=== PATIENT | male | born 1975 | race Caucasian/White ===

== ENCOUNTER → 2016-08-12 | Outpatient (CLI) | payer BC ==
[2016-08-12 12:31] LABS: Basophils % (A) 1 %; CHCM 34.9; Eosinophils # (A) 0.2 k/uL (0-0.7); Eosinophils % (A) 3 %; HCT 52.4 % (39.0-53.0); HDW 2.81; HGB 17.9 gm/dL (13.0-17.5); Luc # (Auto) 0.17; Luc % (Auto) 2; Lymphocytes % (A) 27 %; MCH 29.5 pg (25.0-35.0); MCHC 34.2 g/dL (31.0-37.0); MCV 86.4 fL (80.0-100.0); Monocytes # (A) 0.4 k/uL (0-1.0); Monocytes % (A) 6 %; Neutrophils # (A) 4.8 k/uL (1.3-7.7); Neutrophils % (A) 63 %; RBC 6.06 m/uL (4.30-5.90); RDW 13.5 % (11.5-15.5); WBC 7.7 k/uL (3.8-10.6); WBC (Perox) 7.68
[2016-08-12 12:32] LABS: ALT 34 U/L (21-72); AST 21 U/L (17-59); Alkaline Phosphatase 67 U/L (38-126); Anion Gap 11 mmol/L; Blood Urea Nitrogen 12 mg/dL (9-20); Calcium 9.7 mg/dL (8.4-10.2); Carbon Dioxide 32 mmol/L (22-30); Chloride 99 mmol/L (98-107); Cholesterol 261 mg/dL (<200); Glucose 108 mg/dL (74-99); HDL Cholesterol 68 mg/dL (40-60); Non-African American GFR(MDRD) >60 (>60 ml/min/1.73 sqM); Potassium 4.9 mmol/L (3.5-5.1); Sodium 142 mmol/L (137-145); Total Bilirubin 1.3 mg/dL (0.2-1.3); Total Protein 7.2 g/dL (6.3-8.2); Triglycerides 282 mg/dL (<150)
[2016-08-12 16:22] LABS: Hemoglobin A1C 6.6 % (4.2-6.1)
== END | disposition home or self-care (01) ==
LOC: LABWHC1 12:03
PROVIDERS: ATTEND Family Medicine
DX: E11.65 Type 2 diabetes mellitus with hyperglycemia (principal)
CPT/HCPCS: 36415; 80053; 80061; 82043; 83036; 84443; 85025

== ENCOUNTER → 2018-03-31 | Outpatient (CLI) | payer BC ==
[2018-03-31 14:14] VITALS: BP 118/71; PULSE 51; TEMP 98.4; BMI 48.9
--- NOTE | 2018-03-31 15:39 | P.HPBAR ---
Bariatric H&P - History & Physicial H&P Date: 03/31/18 History & Physicial: Visit/CC: initial consultation Patient initial contact: Initial weight: 157.034 kg Initial weight in pounds: 346.20 Height: 5 ft 10.5 in Initial BMI: 48.9 Last weight: Current weight: 157.034 kg Current weight in pounds: 346.20 Current BMI: 48.9 [place] body weight (based on NIH guidelines): 76.657 kg Excess body weight loss: 0.0% The patient is a 42 year-old M who presents for Bariatric Assessment. Patient here today for evaluation of bariatric surgery. Patient suffered with his weight for the majority of his life. He went to a seminar in February. He is interested in sleeve gastrectomy. Patient's highest weight is around 350 which is where he is now. He did have some success with dieting several years ago and was down into the to 40 range. Patient suffers from hypertension, type 2 diabetes, hypercholesterolemia, minimal reflux disease, suspected arthritis in his knees and ankles. Denies any history of DVT or dysphagia in the past. No previous abdominal surgeries. Denies tobacco or alcohol use. 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) History of Any Multi-Drug Resistant Organisms: None Reported Past Surgical History: Orthopedic Surgery, Tonsillectomy Additional Past Surgical History / Comment(s): left ankle bone spurs removed Past Anesthesia/Blood Transfusion Reactions: No Reported Reaction Past Psychological History: No Psychological Hx Reported Smoking Status: Never smoker Past Alcohol Use History: Occasional Past Drug Use History: None Reported - Past Family History Mother History Unknown: Yes Family Medical History: Diabetes Mellitus, Myocardial Infarction ([place]) Additional Family Medical History / Comment(s): Biological mother at age 67. Bilogical maternal grandfather from a heart attack and also had DM Father Family Medical History: No Reported History Surgical - Exam Vital Signs Temp Pulse BP 98.4 F 51 L 118/71 03/31/18 13:53 03/31/18 13:53 03/31/18 13:53 Physical exam: General: Well-developed, well-nourished HEENT: Normocephalic, sclerae nonicteric Abdomen: Nontender, nondistended Extremities: No edema Neuro: Alert and oriented Bariatric Assessment & Plan (1) Morbid obesity with BMI of 45.0-49.9, adult Narrative/Plan: Patient with morbid obesity. Interested in sleeve gastrectomy. Patient went to a recent bariatric seminar. He and I reviewed what he learned at the recent seminar. We discussed the options of sleeve gastrectomy and gastric bypass in detail. The risks and benefits of both procedures were reviewed. Patient remained interested in sleeve gastrectomy. We'll move forward with preoperative evaluation and preparation for sleeve gastrectomy. Patient will follow up with me for upper endoscopy as we approach his surgical date. Patient is complaining of some chronic fatigue and snoring at times. We'll order sleep study at this time. Status: Acute Bariatric Checklist Checklist: Plan: Checklist: EGD: 1. Hiatal hernia: 2. H. Pylori: HgbA1c: Vitamin D: Smoking: Never smoker Primary care physician referral: malinda leigh Psychiatry clearance: Cardiology clearance: Sleep study: Diet journal: VTE risk score: VTE risk level: Rehab needs at discharge:
== END | disposition home or self-care (01) ==
LOC: BARWHC3 13:44
PROVIDERS: ATTEND Surgery
DX: E66.01 Morbid (severe) obesity due to excess calories (principal); Z68.42 Body mass index [BMI] 45.0-49.9, adult; Z90.49 Acquired absence of other specified parts of digestive tract; Z98.890 Other specified postprocedural states
CPT/HCPCS: 99211

== ENCOUNTER → 2018-04-01 | Outpatient (CLI) | payer BC ==
[2018-04-01 09:09] LABS: HCT 47.7 % (39.0-53.0); HGB 16.1 gm/dL (13.0-17.5); MCH 28.7 pg (25.0-35.0); MCHC 33.8 g/dL (31.0-37.0); Mean Platelet Volume 6.4; Platelet Count 319 k/uL (150-450); RBC 5.62 m/uL (4.30-5.90); RDW 13.4 % (11.5-15.5)
[2018-04-01 14:21] LABS: Eosinophils # (M) 0.07 k/uL (0-0.7); Lymphocytes # (M) 2.31 k/uL (1.0-4.8); Monocytes # (M) 0.49 k/uL (0-1.0); Neutrophils # (M) 4.13 k/uL (1.3-7.7); Neutrophils % (M) 59 %; Nucleated Red Blood Cells 0 /100 WBC (0-0); Total Cells Counted 100
[2018-04-01 17:31] LABS: Vitamin D 25 Hydroxy 13.4 ng/mL (30.0-100.0)
[2018-04-01 19:37] LABS: Albumin 4.3 g/dL (3.80-4.90); Albumin/Globulin Ratio 2.69 (1.20-2.10); Anion Gap 9.9 mmol/L (4.00-12.00); Calcium 8.9 mg/dL (8.7-10.3); Carbon Dioxide 29.1 mmol/L (21.6-31.8); Globulin 1.6 g/dL (1.6-3.3); Potassium 4.4 mmol/L (3.5-5.5); Total Bilirubin 0.6 mg/dL (0.3-1.2); Total Protein 5.9 g/dL (6.2-8.2)
[2018-04-01 21:02] LABS: Hemoglobin A1C 9.8 % (4.0-6.0)
[2018-04-01 21:43] LABS: LDL Cholesterol,Calculated 99.4 mg/dL (0.0-131.0); VLDL Calculation 43.6 mg/dL (5.00-40.00)
== END | disposition home or self-care (01) ==
LOC: LABWHC1 08:09
PROVIDERS: ATTEND Surgery
DX: E66.01 Morbid (severe) obesity due to excess calories (principal); D50.8 Other iron deficiency anemias; E55.9 Vitamin D deficiency, unspecified; E11.65 Type 2 diabetes mellitus with hyperglycemia; Z68.42 Body mass index [BMI] 45.0-49.9, adult
CPT/HCPCS: 36415; 80053; 80061; 82306; 82607; 83036; 83540; 84443; 85027; 93005

== ENCOUNTER → 2018-05-05 | Outpatient (CLI) | payer BC ==
[2018-05-05 13:11] LABS: Basophils % (A) 0 %; Eosinophils # (A) 0.1 k/uL (0-0.7); Eosinophils % (A) 2 %; HCT 45.6 % (39.0-53.0); HGB 16.2 gm/dL (13.0-17.5); Lymphocytes % (A) 25 %; MCH 30.1 pg (25.0-35.0); MCHC 35.4 g/dL (31.0-37.0); Mean Platelet Volume 6.3; Monocytes # (A) 0.4 k/uL (0-1.0); Monocytes % (A) 6 %; Neutrophils # (A) 5.2 k/uL (1.3-7.7); Neutrophils % (A) 66 %; Platelet Count 271 k/uL (150-450); RBC 5.37 m/uL (4.30-5.90); RDW 13.5 % (11.5-15.5); WBC 7.9 k/uL (3.8-10.6)
[2018-05-05 18:43] LABS: Albumin 4.5 g/dL (3.80-4.90); Albumin/Globulin Ratio 2.5 (1.60-3.17); Anion Gap 8.6 mmol/L (4.00-12.00); Calcium 9.5 mg/dL (8.7-10.3); Carbon Dioxide 30.4 mmol/L (21.6-31.8); Globulin 1.8 g/dL (1.6-3.3); LDL Cholesterol,Calculated 67.4 mg/dL (0.0-131.0); Potassium 4.1 mmol/L (3.5-5.5); Total Bilirubin 1.2 mg/dL (0.3-1.2); Total Protein 6.3 g/dL (6.2-8.2); VLDL Calculation 31.6 mg/dL (5.00-40.00)
[2018-05-05 22:15] LABS: Hemoglobin A1C 8.8 % (4.0-6.0)
== END ==
LOC: LABWHC1 11:59
PROVIDERS: ATTEND Family Medicine
DX: E11.65 Type 2 diabetes mellitus with hyperglycemia (principal)
CPT/HCPCS: 36415; 80053; 80061; 82043; 82570; 83036; 84443; 85025

== ENCOUNTER → 2018-11-30 | Outpatient (CLI) | payer BC ==
[2018-11-30 10:27] VITALS: BMI 48.0
== END | disposition home or self-care (01) ==
LOC: BARWHC3 08:51
PROVIDERS: ATTEND Surgery
DX: E66.01 Morbid (severe) obesity due to excess calories (principal); Z68.42 Body mass index [BMI] 45.0-49.9, adult
CPT/HCPCS: 97804

== ENCOUNTER 2018-12-11 06:52 | Day surgery (SDC) | payer BC ==
[2018-12-09 16:10] VITALS: BMI 48.0
[~2018-12-11 06:52] MED LIST: LACTATED RINGERS 1,000 ML IV SCH; LIDOCAINE 1% 20 ML VIAL (10MG/ML) FOR IV START INTRADERMA PRN
[2018-12-11] MEDS ORDERED: LACTATED RINGERS 1,000 ML IV ONE (07:04)
[2018-12-11 07:14] VITALS: TEMP 98.6
[2018-12-11 07:30] LABS: Glucose,Whole Blood 182 mg/dL (75-99)
[2018-12-11] MEDS ORDERED: GLYCOPYRROLATE 0.2 MG/ML 2 ML VIAL ONE (07:38)
[2018-12-11] MEDS ORDERED: MIDAZOLAM 2 MG/2 ML VIAL ONE (07:38)
[2018-12-11] MEDS ORDERED: LIDOCAINE 1% INJ 10MG/ML (20 ML MDV) ONE (07:38)
[2018-12-11] MEDS ORDERED: KETAMINE 10 MG/ML 20 ML VIAL ONE (07:38)
[2018-12-11] MEDS ORDERED: PROPOFOL 10 MG/ML 20 ML VIAL IV ONE (07:38)
--- NOTE | 2018-12-11 08:05 | P.GSHP ---
History of Present Illness H&P Date: 12/11/18 Chief Complaint: GERD Patient here today for upper endoscopy. He is being worked up for sleeve gastrectomy in the bariatric clinic. Complains of mild reflux. No dysphagia. Past Medical History Past Medical History: Asthma, Diabetes Mellitus, Hypertension Additional Past Medical History / Comment(s): mild asthma History of Any Multi-Drug Resistant Organisms: None Reported Past Surgical History: Orthopedic Surgery, Tonsillectomy Additional Past Surgical History / Comment(s): left ankle bone spurs removed , Past Anesthesia/Blood Transfusion Reactions: No Reported Reaction Smoking Status: Never smoker - Past Family History Mother History Unknown: Yes Family Medical History: Diabetes Mellitus, Myocardial Infarction ([place]) Additional Family Medical History / Comment(s): Biological mother at age 67. Bilogical maternal grandfather from a heart attack and also had DM Father Family Medical History: No Reported History Medications and Allergies Home Medications Medication Instructions Recorded Confirmed Type Albuterol Inhaler [Ventolin Hfa 2 puff INHALATION Q4H PRN #1 11/14/14 12/11/18 Rx Inhaler] inhaler metFORMIN HCL [Glucophage Xr] 750 mg PO BID 03/31/18 12/11/18 History Simvastatin [Zocor] 10 mg PO HS 11/30/18 12/11/18 History Lisinopril [Zestril] 10 mg PO DAILY 12/09/18 12/11/18 History Allergies Allergy/AdvReac Type Severity Reaction Status Date / Time No Known Allergies Allergy Verified 12/11/18 07:15 Surgical - Exam Vital Signs Temp Pulse Resp BP Pulse Ox 98.6 F 83 14 129/77 96 12/11/18 07:13 12/11/18 07:13 12/11/18 07:13 12/11/18 07:13 12/11/18 07:13 Physical exam: General: Well-developed, well-nourished HEENT: Normocephalic, sclerae nonicteric Abdomen: Nontender, nondistended Extremities: No edema Neuro: Alert and oriented Results - Labs Abnormal Lab Results - Last 24 Hours (Table) 12/11/18 Range/Units 07:25 POC Glucose (mg/dL) 182 H (75-99) mg/dL Assessment and Plan (1) GERD (gastroesophageal reflux disease) Narrative/Plan: Will proceed with upper endoscopy at this time Current Visit: Yes Status: Acute Code(s): K21.9 - GASTRO-ESOPHAGEAL REFLUX DISEASE WITHOUT ESOPHAGITIS SNOMED Code(s): 805449353
--- NOTE | 2018-12-11 08:13 | P.PCN ---
Date of Procedure: 12/11/18 Procedure(s) Performed: Preoperative Dx: GERD, presurgical Postoperative Dx: Duodenitis, gastritis with erosions Procedure: EGD with Bx Anesthesia: Sedation Endoscopist: Dr. Nieves Specimens: Duodenum, antrum Endoscopic Procedure: The patient was on the endoscopy table in the left decubitus position. The Olympus gastroscope was inserted into the oropharynx and passed under direct visualization to the region of the third portion of the duodenum. From that point the scope was slowly withdrawn inspecting all surfaces carefully. There was duodenitis present. This was involving the first and second portion of the duodenum. Biopsies took place. No ulcers were seen. The pylorus was widely patent. The stomach was inspected. There was gastritis present with a few small erosions in the antrum and prepyloric region. Biopsies of the gastritis took place. Retroflexion revealed a normal hiatus. The esophagus was then carefully examined. There were no neoplastic inflammatory or polypoid lesions throughout the visualized esophagus. The patient was then taken to the recovery room in stable condition per anesthesia guidelines. Recommendations: Begin antiacid therapy. Await biopsy results. Continue preoperative workup for sleeve gastrectomy.
[2018-12-11 08:17] VITALS: RESP 16
[2018-12-11 08:43] VITALS: BP 127/84; PULSE 93
== END 2018-12-11 08:55 | disposition home or self-care (01) ==
LOC: ORWHC2ENDO 06:52
PROVIDERS: ATTEND Surgery
DX: K31.9 Disease of stomach and duodenum, unspecified (principal); K29.80 Duodenitis without bleeding; K25.9 Gastric ulcer, unspecified as acute or chronic, without hemorrhage or perforation; K21.9 Gastro-esophageal reflux disease without esophagitis; J45.909 Unspecified asthma, uncomplicated; E11.9 Type 2 diabetes mellitus without complications; I10 Essential (primary) hypertension; E66.01 Morbid (severe) obesity due to excess calories; Z68.42 Body mass index [BMI] 45.0-49.9, adult; Z79.84 Long term (current) use of oral hypoglycemic drugs; Z79.899 Other long term (current) drug therapy; Z90.89 Acquired absence of other organs; Z98.890 Other specified postprocedural states; Z83.3 Family history of diabetes mellitus; Z82.49 Family history of ischemic heart disease and other diseases of the circulatory system
CPT/HCPCS: 88305; 43239; J2250; J2001; J2704

== ENCOUNTER → 2018-12-29 | Outpatient (CLI) | payer BC ==
[2018-12-29 14:30] VITALS: BP 142/79; PULSE 107; RESP 16; TEMP 98.7; BMI 49.5
--- NOTE | 2018-12-29 22:11 | P.BASOAP ---
Subjective Progress Note Date: 12/29/18 Principal diagnosis: Morbid obesity Patient returns for recheck. Underwent recent upper endoscopy. Patient was found to have duodenitis and gastritis with small erosions. Doing well at this time. He remains interested in sleeve gastrectomy. No changes to his history and physical otherwise. Objective - Vital Signs Vital signs: Vital Signs Temp 98.7 F 12/29/18 14:28 Pulse 107 H 12/29/18 14:28 Resp 16 12/29/18 14:28 BP 142/79 12/29/18 14:28 Pulse Ox Intake & Output 12/29/18 12/29/18 12/30/18 06:59 18:59 06:59 Weight 158.757 kg - Exam Abdomen: Soft, nontender, nondistended Assessment/Plan (1) Morbid obesity with BMI of 45.0-49.9, adult Narrative/Plan: Sleeve gastrectomy procedure and the surgical consent form reviewed in detail. Associated risk and benefits discussed. He remains interested. We'll schedule on 01/11. Plan: Date: 12/29/18 Initial Weight: 157.034 kg Initial BMI: 48.9 Current Weight: 158.757 kg Current BMI: 49.5 Type of Surgery: Total Volume in Band: Previous Volume: Volume Removed: Volume Added: Band Size:
== END | disposition home or self-care (01) ==
LOC: BARWHC3 14:17
PROVIDERS: ATTEND Surgery
DX: E66.01 Morbid (severe) obesity due to excess calories (principal); K29.80 Duodenitis without bleeding; K29.70 Gastritis, unspecified, without bleeding; Z68.42 Body mass index [BMI] 45.0-49.9, adult
CPT/HCPCS: 99211

== ENCOUNTER → 2019-01-08 | Outpatient (CLI) | payer BC ==
[2019-01-08 13:54] LABS: Basophils # (A) 0.1 k/uL (0-0.2); Basophils % (A) 1 %; Eosinophils # (A) 0.2 k/uL (0-0.7); Eosinophils % (A) 3 %; HCT 47.6 % (39.0-53.0); HGB 16.4 gm/dL (13.0-17.5); Lymphocytes # (A) 1.8 k/uL (1.0-4.8); Lymphocytes % (A) 28 %; MCH 29.9 pg (25.0-35.0); MCHC 34.4 g/dL (31.0-37.0); MCV 86.8 fL (80.0-100.0); Monocytes # (A) 0.4 k/uL (0-1.0); Monocytes % (A) 6 %; Neutrophils # (A) 3.9 k/uL (1.3-7.7); Neutrophils % (A) 60 %; Platelet Count 256 k/uL (150-450); RBC 5.49 m/uL (4.30-5.90); RDW 13.2 % (11.5-15.5); WBC 6.5 k/uL (3.8-10.6)
[2019-01-08 14:14] LABS: ALT 28 U/L (21-72); AST 27 U/L (17-59); African American GFR (CKD) >90 (>60 ml/min/1.73 sqM); Alkaline Phosphatase 80 U/L (38-126); Anion Gap 10 mmol/L; Blood Urea Nitrogen 16 mg/dL (9-20); Calcium 8.8 mg/dL (8.4-10.2); Carbon Dioxide 29 mmol/L (22-30); Chloride 97 mmol/L (98-107); Glucose 271 mg/dL (74-99); Sodium 136 mmol/L (137-145); Total Bilirubin 0.9 mg/dL (0.2-1.3); Total Protein 6.7 g/dL (6.3-8.2)
== END | disposition home or self-care (01) ==
LOC: LABWHC1 13:09 → LABPAT 13:09
PROVIDERS: ATTEND Surgery
DX: Z01.812 Encounter for preprocedural laboratory examination (principal)
CPT/HCPCS: 80053; 85025

== ENCOUNTER 2019-01-11 11:08 | Inpatient (IN) | payer BC ==
[2019-01-08 13:07] VITALS: BMI 48.8
[~2019-01-11 11:08] MED LIST changes: +ACETAMINOPHEN TAB 500 MG TAB PO ONE; +DEXAMETHASONE SOD PHOSPHATE 10 MG/ML 1 ML VIAL IV ONE; +ENOXAPARIN 40 MG/0.4 ML SYRINGE SQ ONE; -LACTATED RINGERS 1,000 ML IV SCH; +ONDANSETRON 4 MG/2 ML VIAL IVP ONE; +ceFAZolin 3 GM in SODIUM CHLORIDE 0.9% 100 ML IVPB ONE
[2019-01-11] MEDS ORDERED: LACTATED RINGERS 1,000 ML IV ONE ×2 (11:37→14:29)
[2019-01-11 11:49] LABS: Glucose,Whole Blood 173 mg/dL (75-99)
[2019-01-11] MEDS: LACTATED RINGERS 1,000 ML IV SCH ×3 (13:10→19:37)
--- NOTE | 2019-01-11 13:11 | P.GSHP ---
History of Present Illness H&P Date: 01/11/19 Chief Complaint: Morbid obesity 43-year-old male known to our service. Patient here today for elective sleeve gastrectomy. Patient has investigated both sleeve gastrectomy and gastric bypass but remains interested in sleeve gastrectomy. No history of DVT or dysphagia. Recent endoscopy showed duodenitis and gastritis. No history of abdominal surgeries. Patient suffers from hypertension type 2 diabetes hypercholesterolemia mild reflux symptoms and arthritis. 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 Bilogical maternal grandfather from a heart attack and also had DM Father Family Medical History: No Reported History Medications and Allergies Home Medications Medication Instructions Recorded Confirmed Type Albuterol Inhaler [Ventolin Hfa 2 puff INHALATION Q4H PRN #1 11/14/14 01/08/19 Rx Inhaler] inhaler metFORMIN HCL [Glucophage Xr] 750 mg PO BID 03/31/18 01/08/19 History Simvastatin [Zocor] 10 mg PO HS 11/30/18 01/08/19 History Lisinopril [Zestril] 10 mg PO DAILY 12/09/18 01/08/19 History Omeprazole [PriLOSEC] 20 mg PO -BRKFST #90 cap 12/11/18 01/08/19 Rx Allergies Allergy/AdvReac Type Severity Reaction Status Date / Time No Known Allergies Allergy Verified 01/08/19 13:05 Surgical - Exam Vital Signs Temp Pulse Resp BP Pulse Ox 97.8 F 95 18 139/87 97 01/11/19 11:36 01/11/19 11:36 01/11/19 11:36 01/11/19 11:36 01/11/19 11:36 Physical exam: General: Well-developed, well-nourished HEENT: Normocephalic, sclerae nonicteric Abdomen: Nontender, nondistended Extremities: No edema Neuro: Alert and oriented Results - Labs Abnormal Lab Results - Last 24 Hours (Table) 01/11/19 Range/Units 11:47 POC Glucose (mg/dL) 173 H (75-99) mg/dL Assessment and Plan (1) Morbid obesity with BMI of 45.0-49.9, adult Narrative/Plan: Will proceed with sleeve gastrectomy at this time. The risks of bleeding, infection, stenosis, stricture, leak, abscess, fistula formation, peritonitis, poor weight loss, reflux, vomiting, conversion to an open procedure, aborting sleeve gastrectomy, [place], PE, DVT, and were discussed. The patient understands and wishes to proceed. Current Visit: No Status: Acute Code(s): E66.01 - MORBID (SEVERE) OBESITY DUE TO EXCESS CALORIES; Z68.42 - BODY MASS INDEX (BMI) 45.0-49.9, ADULT SNOMED Code(s): 175810606
[2019-01-11] MEDS ORDERED: NEOSTIGMINE 1 MG/ML 10 ML VIAL ONE (13:27)
[2019-01-11] MEDS ORDERED: ALBUTEROL INHALER 60 PUFF/8 GM INHALER INHALATION ONE (13:27)
[2019-01-11] MEDS ORDERED: PHENYLEPHRINE-0.9% NACL SYG 1 MG/10 ML SYRINGE ONE (13:27)
[2019-01-11] MEDS ORDERED: LIDOCAINE 1% INJ 10MG/ML (20 ML MDV) ONE (13:27)
[2019-01-11] MEDS ORDERED: fentaNYL (PF) 50 MCG/ML 2 ML AMP ONE (13:27)
[2019-01-11] MEDS ORDERED: SUCCINYLCHOLINE CHLORIDE VIAL 200 MG/10 ML VIAL IV ONE (13:27)
[2019-01-11] MEDS ORDERED: GLYCOPYRROLATE 0.2 MG/ML 2 ML VIAL ONE (13:27)
[2019-01-11] MEDS ORDERED: PROPOFOL 10 MG/ML 20 ML VIAL IV ONE (13:27)
[2019-01-11] MEDS ORDERED: ROCURONIUM BROMIDE 10 MG/ML 10 ML VIAL IV ONE (13:27)
[2019-01-11] MEDS ORDERED: MIDAZOLAM 2 MG/2 ML VIAL ONE (13:27)
[2019-01-11] MEDS ORDERED: ESMOLOL 100 MG/10 ML VIAL ONE (13:27)
[2019-01-11] MEDS ORDERED: BUPIVACAINE (PF) 0.25% 30 ML VIAL SQ ONE ×2 (13:38→14:10)
[2019-01-11] MEDS ORDERED: METHYLENE BLUE 3 MG in DEXTROSE 5% IN WATER 500 ML IRRIGATION ONE ×2 (14:29)
[2019-01-11] MEDS ORDERED: HYOSCYAMINE ORAL DROPS 1.875 MG/15 ML BOTTLE PO PRN (16:02)
[2019-01-11] MEDS ORDERED: NALOXONE 0.4 MG/ML 1 ML VIAL IV PRN (16:02)
[2019-01-11] MEDS ORDERED: diphenhydrAMINE 50 MG/ML 1 ML VIAL IVP PRN (16:02)
[2019-01-11] MEDS ORDERED: SIMETHICONE 40 MG/0.6 ML DROPS 2,000 MG/30 ML BOTTLE PO PRN (16:02)
--- NOTE | 2019-01-11 16:08 | P.OP ---
Date of Procedure: 01/11/19 Procedure(s) Performed: PREOPERATIVE DIAGNOSIS: Morbid obesity, diabetes, hypertension, hypercholesterolemia, arthritis POSTOPERATIVE DIAGNOSIS: Same PROCEDURE: Laparoscopic sleeve gastrectomy SURGEON: Lizbeth CHUNL: Minimal ANESTHESIA: General COMPLICATIONS: None OPERATIVE PROCEDURE: Patient was placed in the operating table in the supine position. He was placed under general anesthesia at that time. The abdomen was prepped and draped in sterile fashion after the patient was placed in lithotomy. A 5 mm optical trocar was used to enter the abdominal cavity in the left upper quadrant. Insufflation took place to 15 millimeters mercury. An additional right subxiphoid 5 mm trocar was then placed under direct visualization and then removed. 2 additional 5 mm trochars were placed in the right upper quadrant and left upper quadrant under direct visualization and a 15 mm trocar in the supraumbilical location. The liver was retracted using a medium Hilaria liver retractor through the right subxiphoid trocar site. The hiatus was inspected. The patient had no visible hiatal hernia At that point I moved to the mid aspect of the greater curvature the stomach. The short gastric vasculature was divided using a LigaSure device proximally. I then switched and divided the short gastrics distally to a 3-4 cm from the pylorus. The dissection took place up to the left diaphragmatic crura at that point. The posterior short gastrics were likewise divided using the LigaSure device. Once the stomach was fully mobilized the blunt tipped 40-Chilean bougie dilator was advanced into the stomach and advanced all the way to the prepyloric location. A black echelon 60 stapler was utilized and fired tangentially across the antrum taking care to avoid narrowing at the incisura angularis. The second firing of the stapler was again a 60 black with seam guard. Subsequent firings of the stapler took place. A total of4 green echelon 60 staplers with seam guard took place proximally staying on the outer edge of our dilator. Once we reached the most proximal portion of the stomach a single firing of the gold echelon 60 stapler without seen guard took place. The oral gastric tube was reinserted. The stomach was insufflated with approximately 100 mL of methylene blue. No evidence of leak or obstruction was seen. The distal aspect of the sleeve was then reapproximated to the gastrosplenic and gastrocolic ligament using a short running 2-0 strata fix suture. This was done to prevent kinking or twisting of the sleeve. Fibrin glue was then sprayed along the length of the staple line. No bleeding was seen. The stomach remnant was removed from the 15 mm trocar site without difficulty. The fascia at the 15 millimeter site was closed using [id number] 0 Vicryl sutures. The insufflation was evacuated. The skin at all 5 incisions were closed using 4-0 Monocryl sutures. Steri-Strips and sterile dressings were then applied. DISPOSITION: Stable to recovery room
[2019-01-11] MEDS: HYDROmorphone 0.5 MG/0.5 ML SYRINGE IVP PRN ×2 (16:55→17:10)
[2019-01-11 17:07] LABS: Glucose,Whole Blood 336 mg/dL (75-99)
[2019-01-11] MEDS ORDERED: INSULIN ASPART (NovoLOG) 100 UNIT/ML VIAL SQ ONE (17:11)
[2019-01-11 17:56] LABS: Glucose,Whole Blood 265 mg/dL (75-99)
[2019-01-11] MEDS ORDERED: ACETAMINOPHEN IV (For NPO) 1,000 MG in EMPTY BAG 1 BAG IVPB ONE (18:00)
[2019-01-11] MEDS ORDERED: INSULIN ASPART (NovoLOG) 100 UNIT/ML VIAL SQ SCH (21:00)
[2019-01-11] MEDS: ALBUTEROL NEBULIZED 2.5 MG/3 ML INHALATION SCH (21:02)
[2019-01-11 21:22] LABS: Glucose,Whole Blood 206 mg/dL (75-99)
[2019-01-11] MEDS: ATORVASTATIN 10 MG TAB PO SCH (21:40)
[2019-01-11] MEDS: HYDROmorphone 1 MG/ML 1 ML SYRINGE IVP PRN (22:07)
[2019-01-11] MEDS: 0.9% NACL WITH KCL 20 MEQ/L 1,000 ML IV SCH ×2 (22:07→23:34)
[2019-01-11] MEDS: INSULIN ASPART (NovoLOG) 100 UNIT/ML VIAL SQ SCH (22:07)
--- NOTE | 2019-01-11 22:14 | P.CONS ---
History of Present Illness - Reason for Consult Consult date: 01/11/19 Medical management Requesting physician: Cedrick Nieves - Chief Complaint Sleep gastrectomy - History of Present Illness Consultation: This is a pleasant 43-year-old patient of Dr. Braden. Chronic stable medical conditions include mild asthma, diabetes, GERD, essential hypertension. Patient underwent sleeve gastrectomy. Postprocedure slight discomfort in the abdomen. No Nausea vomiting. Has been allowed ice chips. Laying in bed. No chest pain or shortness of breath. Review of systems: GEN.: None EYES: None HEENT: None NECK: None RESPIRATORY: None CARDIOVASCULAR: None GASTROINTESTINAL: Reflux GENITOURINARY: None MUSCULOSKELETAL: None LYMPHATICS: None HEMATOLOGICAL: None PSYCHIATRY: None NEUROLOGICAL: None Social history: Does not smoke. Alcohol occasionally. Has roommates. Employed. Physical examination: VITAL SIGNS: 99, 118, 16, 133/87, 94% room air GENERAL: BMI 48.8, laying in bed, in distress. EYES: Pupils equal. Conjunctiva normal. HEENT: External appearance of nose and ears normal, oral cavity grossly normal. NECK: JVD not raised; masses not palpable. HEART: First and second heart sounds are normal; no edema. LUNGS: Respiratory rate normal; clear to auscultation. ABDOMEN: Soft, minimal tenderness, no guarding or rigidity, liver spleen not palpable, no masses palpable. PSYCH: Alert and oriented x3; mood and affect normal. NEUROLOGICAL: Cranial nerves grossly intact; no facial asymmetry, power and sensation grossly intact. LYMPHATICS: No lymph nodes palpable in the axilla and neck INVESTIGATIONS, reviewed in the clinical context: [id number], 336, 265, 206 Assessment: -Sleeve gastrectomy -Morbid obesity BMI 48.8 -Mild intermittent asthma -Diabetes mellitus type 2 on oral hypoglycemic, uncontrolled with hyper glycemia -GERD -Essential hypertension Plan: -Accu-Cheks to be followed with sliding scale insulin. Oral medications are to start when okay with Dr. Nieves. Care was discussed with the patient. Questions were also. Patient to follow-up with Dr. braden upon discharge Thank you Dr. 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 Bilogical maternal grandfather from a heart attack and also had DM Father Family Medical History: No Reported History Medications and Allergies Home Medications Medication Instructions Recorded Confirmed Type Albuterol Inhaler [Ventolin Hfa 2 puff INHALATION Q4H PRN #1 11/14/14 01/08/19 Rx Inhaler] inhaler metFORMIN HCL [Glucophage Xr] 750 mg PO BID 03/31/18 01/08/19 History Simvastatin [Zocor] 10 mg PO HS 11/30/18 01/08/19 History Lisinopril [Zestril] 10 mg PO DAILY 12/09/18 01/08/19 History Omeprazole [PriLOSEC] 20 mg PO AC-BRKFST #90 cap 12/11/18 01/08/19 Rx Allergies Allergy/AdvReac Type Severity Reaction Status Date / Time No Known Allergies Allergy Verified 01/08/19 13:05 Physical Exam Vitals: Vital Signs Temp Pulse Pulse Pulse Pulse Resp BP 01/11/19 21:16 118 H 01/11/19 21:02 118 H 01/11/19 19:18 99.0 F 118 H 16 133/87 01/11/19 17:47 96.1 F L 111 H 17 144/94 01/11/19 17:45 105 H 18 126/67 01/11/19 17:32 124/52 01/11/19 17:30 109 H 18 126/50 01/11/19 17:15 112 H 18 126/50 01/11/19 17:01 102 H 18 121/60 01/11/19 16:45 100 18 129/63 01/11/19 16:30 107 H 18 132/67 01/11/19 16:15 109 H 12 01/11/19 16:09 97.7 F 104 H 12 01/11/19 11:36 97.8 F 95 18 BP Pulse Ox 01/11/19 21:16 01/11/19 21:02 96 10/21/19 19:18 94 L 01/11/19 17:47 94 L 01/11/19 17:45 96 01/11/19 17:32 01/11/19 17:30 95 01/11/19 17:15 95 01/11/19 17:01 94 L 01/11/19 16:45 94 L 01/11/19 16:30 96 01/11/19 16:15 140/70 93 L 01/11/19 16:09 140/71 93 L 01/11/19 11:36 139/87 97 Intake and Output 01/11/19 01/11/19 01/11/19 06:59 14:59 22:59 Intake Total 2701 200 Output Total 20 Balance 2701 180 Intake: IV 2701 200 Output: Estimated Blood Loss 20 Other: Weight 156.489 kg Results Labs: Abnormal Lab Results - Last 24 Hours (Table) 01/11/19 01/11/19 01/11/19 Range/Units 11:47 17:04 17:53 POC Glucose (mg/dL) 173 H 336 H 265 H (75-99) mg/dL 01/11/19 Range/Units 21:21 POC Glucose (mg/dL) 206 H (75-99) mg/dL
[2019-01-12] MEDS: ENOXAPARIN 40 MG/0.4 ML SYRINGE SQ SCH ×2 (03:01→16:05)
[2019-01-12] MEDS: HYDROmorphone 1 MG/ML 1 ML SYRINGE IVP PRN (03:03)
[2019-01-12] MEDS: 0.9% NACL WITH KCL 20 MEQ/L 1,000 ML IV SCH (05:41)
[2019-01-12 07:03] LABS: Basophils % (A) 0 %; Eosinophils # (A) 0.1 k/uL (0-0.7); Eosinophils % (A) 1 %; HCT 44.4 % (39.0-53.0); HGB 15.5 gm/dL (13.0-17.5); Lymphocytes # (A) 1.3 k/uL (1.0-4.8); Lymphocytes % (A) 10 %; MCH 29.8 pg (25.0-35.0); MCHC 34.9 g/dL (31.0-37.0); MCV 85.5 fL (80.0-100.0); Mean Platelet Volume 5.4; Monocytes # (A) 0.6 k/uL (0-1.0); Monocytes % (A) 5 %; Neutrophils # (A) 10.6 k/uL (1.3-7.7); Neutrophils % (A) 83 %; Platelet Count 279 k/uL (150-450); RBC 5.19 m/uL (4.30-5.90); WBC 12.8 k/uL (3.8-10.6)
[2019-01-12 07:11] LABS: African American GFR (CKD) >90 (>60 ml/min/1.73 sqM); Anion Gap 9 mmol/L; Blood Urea Nitrogen 20 mg/dL (9-20); Calcium 8.5 mg/dL (8.4-10.2); Carbon Dioxide 29 mmol/L (22-30); Chloride 99 mmol/L (98-107); Magnesium 1.6 mg/dL (1.6-2.3); Phosphorus 4.8 mg/dL (2.5-4.5); Potassium 4.2 mmol/L (3.5-5.1); Sodium 137 mmol/L (137-145)
[2019-01-12] MEDS ORDERED: INSULIN ASPART (NovoLOG) 100 UNIT/ML VIAL SQ SCH (07:30)
[2019-01-12] MEDS: ALBUTEROL NEBULIZED 2.5 MG/3 ML INHALATION SCH ×4 (07:34→21:09)
[2019-01-12 07:35] LABS: Glucose,Whole Blood 199 mg/dL (75-99)
[2019-01-12] MEDS: INSULIN ASPART (NovoLOG) 100 UNIT/ML VIAL SQ SCH ×4 (09:13→20:40)
[2019-01-12] MEDS: PANTOPRAZOLE 40 MG/10 ML VIAL IV SCH (09:13)
[2019-01-12] MEDS: LISINOPRIL 10 MG TAB PO SCH (10:59)
--- NOTE | 2019-01-12 11:07 | FL ---
SINGLE CONTRAST UPPER GI EXAMINATION: CLINICAL HISTORY: 43-year-old male postop bariatric surgery TECHNIQUE: Single contrast exam performed with 25 ml Isovue-370 contrast. Total images: 22. Total fluoroscopy time: 1 minute 8 seconds. FINDINGS: The patient swallowed oral contrast without difficulty or delay. Esophageal peristalsis and motility are within normal limits. There are postsurgical changes of sleeve gastrectomy demonstrated with sat isfactory flow of contrast from the esophagus into the stomach and then into the duodenum. There is n o evidence of contrast extravasation to suggest leak. No postsurgical free air seen. IMPRESSION: No evidence of leak or significant obstruction status post sleeve gastrectomy..
[2019-01-12] MEDS ORDERED: KETOROLAC 30 MG/ML 1 ML VIAL IVP PRN (12:14)
[2019-01-12 12:18] LABS: Glucose,Whole Blood 171 mg/dL (75-99)
[2019-01-12] MEDS: MAGNESIUM SULFATE-D5W PMX 1 GM in DEXTROSE/WATER 1 100ML.BAG IVPB SCH ×2 (13:54→15:58)
[2019-01-12 14:48] LABS: Hemoglobin A1C 9.3 % (4.0-6.0)
--- NOTE | 2019-01-12 14:51 | P.PN ---
<Nereyda Sagastume Samantha - Last Filed: 01/12/19 14:48> Subjective Progress Note Date: 01/12/19 CHIEF COMPLAINT: Morbid obesity HISTORY OF PRESENT ILLNESS: 43-year-old male who underwent laparoscopic sleeve gastrectomy. Postop day #1. Esophagram completed postoperatively negative for leak or obstruction. Patient was started on bariatric clear liquid diet. He states he is tolerating liquids without difficulty. Denies nausea or vomiting. Patient states his pain is tolerable at this time. Currently rating 5/10. Patient is passing flatus. Voiding without difficulty. Patient is requiring oxygen via nasal cannula to maintain oxygen saturations greater than 92%. Patient reports he is using his incentive spirometer as often as he should be. Patient has been up to the bathroom but has not been ambulating in the hallway thus far today. Patient's heart rate remains in the 110s. He has been tachycardic since OR. WBC 12.8. Hemoglobin 15.5. Potassium 4.2. Magnesium 1.6. PHYSICAL EXAM: VITAL SIGNS: Reviewed. GENERAL: Well-developed in no acute distress. HEENT: No sclera icterus. Extraocular movements grossly intact. Moist buccal mucosa. Head is atraumatic, normocephalic. ABDOMEN: Soft. Nondistended. Appropriate surgical tenderness. Laparoscopic sites clean dry and intact without drainage. NEUROLOGIC: Alert and oriented. Cranial nerves II through XII grossly intact. ASSESSMENT: 1. Morbid obesity, status post laparoscopic sleeve gastrectomy PLAN: 1. Continue bariatric clear liquid diet 2. Pain control. [place] and Toradol added this morning. 3. Wean oxygen as tolerated to maintain saturations greater then 92% 4. Encouraged use of incentive spirometer 10 times an hour 5. Encouraged patient to increase ambulate patient as tolerated 6. Replace magnesium 2gram IVPB Nurse practitioner note has been reviewed by physician. Signing provider agrees with the documented findings, assessment, and plan of care. Objective - Vital Signs Vital signs: Vital Signs Temp 98.6 F 01/12/19 07:00 Pulse 112 H 01/12/19 10:17 Resp 16 01/12/19 10:17 BP 122/75 01/12/19 07:00 Pulse Ox 94 L 01/12/19 10:17 Intake & Output 01/11/19 01/12/19 01/12/19 18:59 06:59 18:59 Intake Total 2901 1800 Output Total 20 Balance 2881 1800 Weight 156.489 kg Intake: IV 2901 Intake, IV Titration 1800 Amount 0.9% NaCl with KCl 20 Meq 1800 /l 1,000 ml @ 150 mls/hr IV .Q6H40M [facility] Rx#: [id number] Output: Estimated Blood Loss 20 Other: Voiding Method Toilet # Voids 1 - Labs CBC & Chem 7: 01/12/19 06:48 01/12/19 06:48 Labs: Abnormal Lab Results - Last 24 Hours (Table) 01/11/19 01/11/19 01/11/19 Range/Units 17:04 17:53 21:21 WBC (3.8-10.6) k/uL Neutrophils # (1.3-7.7) k/uL Creatinine (0.66-1.25) mg/dL POC Glucose (mg/dL) 336 H 265 H 206 H (75-99) mg/dL Phosphorus (2.5-4.5) mg/dL 01/12/19 01/12/19 01/12/19 Range/Units 06:48 06:48 07:15 WBC 12.8 H (3.8-10.6) k/uL Neutrophils # 10.6 H (1.3-7.7) k/uL Creatinine 0.62 L (0.66-1.25) mg/dL POC Glucose (mg/dL) 199 H (75-99) mg/dL Phosphorus 4.8 H (2.5-4.5) mg/dL 01/12/19 Range/Units 12:14 WBC (3.8-10.6) k/uL Neutrophils # (1.3-7.7) k/uL Creatinine (0.66-1.25) mg/dL POC Glucose (mg/dL) 171 H (75-99) mg/dL Phosphorus (2.5-4.5) mg/dL <Cedrick Nieves - Last Filed: 01/12/19 17:54> Subjective As above. Patient denies any significant pain. Says his pain is 2 out of 10. Patient was tachycardic intraoperatively and remained so postoperatively. Heart rate when I evaluated him this afternoon was 106 however when he went for a walk in the hallways his heart rate went to 120. Denies shortness of breath. White blood cell count slightly elevated as expected. Hemoglobin stable. Case discu ssed with Dr. Demarco. We discussed options of cardiology evaluation. He would like to reassess and will notify me of his decision. Denies chest pain. Today's upper GI shows no evidence of leak or obstruction. Tolerating clear liquids since they were started earlier today. We'll plan repeat labs tomorrow. Continue clear liquids. Objective - Vital Signs Vital signs: Vital Signs Temp 98.2 F 01/12/19 15:00 Pulse 110 H 01/12/19 15:00 Resp 12 01/12/19 15:00 BP 108/61 01/12/19 15:00 Pulse Ox 94 L 01/12/19 16:41 Intake & Output 01/11/19 01/12/19 01/12/19 18:59 06:59 18:59 Intake Total 2901 1800 Output Total 20 Balance 2881 1800 Weight 156.489 kg Intake: IV 2901 Intake, IV Titration 1800 Amount 0.9% NaCl with KCl 20 Meq 1800 /l 1,000 ml @ 150 mls/hr IV .Q6H40M [facility] Rx#: [id number] Output: Estimated Blood Loss 20 Other: Voiding Method Toilet # Voids 1 - Labs CBC & Chem 7: 01/12/19 06:48 01/12/19 06:48 Labs: Abnormal Lab Results - Last 24 Hours (Table) 01/11/19 01/11/19 01/12/19 Range/Units 17:53 21:21 06:48 WBC (3.8-10.6) k/uL Neutrophils # (1.3-7.7) k/uL Creatinine (0.66-1.25) mg/dL POC Glucose (mg/dL) 265 H 206 H (75-99) mg/dL Hemoglobin A1c 9.3 H (4.0-6.0) % Phosphorus (2.5-4.5) mg/dL 01/12/19 01/12/19 01/12/19 Range/Units 06:48 06:48 07:15 WBC 12.8 H (3.8-10.6) k/uL Neutrophils # 10.6 H (1.3-7.7) k/uL Creatinine 0.62 L (0.66-1.25) mg/dL POC Glucose (mg/dL) 199 H (75-99) mg/dL Hemoglobin A1c (4.0-6.0) % Phosphorus 4.8 H (2.5-4.5) mg/dL 01/12/19 01/12/19 Range/Units 12:14 17:05 WBC (3.8-10.6) k/uL Neutrophils # (1.3-7.7) k/uL Creatinine (0.66-1.25) mg/dL POC Glucose (mg/dL) 171 H 179 H (75-99) mg/dL Hemoglobin A1c (4.0-6.0) % Phosphorus (2.5-4.5) mg/dL Assessment and Plan (1) Morbid obesity with BMI of 45.0-49.9, adult Current Visit: No Status: Acute Code(s): E66.01 - MORBID (SEVERE) OBESITY DUE TO EXCESS CALORIES; Z68.42 - BODY MASS INDEX (BMI) 45.0-49.9, ADULT SNOMED Code(s): 813714225
[2019-01-12 17:15] LABS: Glucose,Whole Blood 179 mg/dL (75-99)
[2019-01-12 20:17] LABS: Glucose,Whole Blood 172 mg/dL (75-99)
[2019-01-12] MEDS: HYDROcodone/APAP 5-325MG 1 EACH TAB PO PRN (20:41)
[2019-01-12] MEDS: ATORVASTATIN 10 MG TAB PO SCH (20:41)
--- NOTE | 2019-01-13 00:02 | P.PN ---
Progress Note - Text Progress Note Date: 01/12/19 Interval history: This is a pleasant 43-year-old patient of Dr. Braden. Chronic stable medical conditions include mild asthma, diabetes, GERD, essential hypertension. Patient underwent sleeve gastrectomy. Today-laying in bed. Comfortable. Starting a liquid diet. Has been out of bed. Did pass flatus, no Nausea vomiting. Review of systems: Was done for constitutional, cardiovascular, GI, pulmonary. relevant finding as above Active Medications Hydrocodone Bitart/Acetaminophen ([place] 5-325) 1 each PO Q4HR PRN PRN Reason: SEVERE Pain Last Admin: 01/12/19 20:41 Dose: 1 each Documented by: Albuterol Sulfate (Ventolin Nebulized) 2.5 mg INHALATION RT-QID [facility] Last Admin: 01/12/19 21:09 Dose: Not Given Documented by: Atorvastatin Calcium (Lipitor) 10 mg PO HS [facility] Last Admin: 01/12/19 20:41 Dose: 10 mg Documented by: Diphenhydramine HCl (Benadryl) 25 mg IVP Q6HR PRN PRN Reason: Itching Enoxaparin Sodium (Lovenox) 40 mg SQ Q12H [facility] Last Admin: 01/12/19 16:05 Dose: 40 mg Documented by: Hydromorphone HCl (Dilaudid) 1 mg IVP Q3HR PRN PRN Reason: SEVERE Pain Last Admin: 01/12/19 03:03 Dose: 1 mg Documented by: Hyoscyamine (Levsin Drops) 0.125 mg PO Q6HR PRN PRN Reason: Esophageal Spasm Last Admin: 01/11/19 22:08 Dose: 0.125 mg Documented by: Lactated Ringer's (Lactated Ringers) 1,000 mls @ 20 mls/hr IV .Q24H [facility] Last Admin: 01/11/19 19:37 Dose: Not Given Documented by: Parenteral Vitamin Supplement 10 ml/ Thiamine HCl 100 mg/Folic Acid 1 mg/ Potassium Chloride/Sodium Chloride 1,011.2 mls @ 100 mls/hr IV .BY DURATION [facility] Last Admin: 01/12/19 16:01 Dose: 100 mls/hr Documented by: Potassium Chloride/Sodium Chloride (Ns-Kcl 20 Meq/L Iv Solution) 1,000 mls @ 100 mls/hr IV .BY DURATION [facility] Last Admin: 01/12/19 18:13 Dose: Not Given Documented by: Insulin Aspart (Novolog) 0 unit SQ ACHS [facility]; Protocol Last Admin: 01/12/19 20:40 Dose: 2 unit Documented by: Ketorolac Tromethamine (Toradol) 15 mg IVP Q6HR PRN PRN Reason: MODERATE Pain Stop: 01/16/19 12:14 Lidocaine HCl (.Xylocaine 1% Inj (10mg/Ml) For Iv Start) 0.1 ml INTRADERMA PER PROTOCOL PRN PRN Reason: IV Start Last Admin: 01/11/19 11:37 Dose: 0.1 ml Documented by: Lisinopril (Zestril) 10 mg PO DAILY [facility] Last Admin: 01/12/19 10:59 Dose: 10 mg Documented by: Naloxone HCl (Narcan) 0.2 mg IV Q2M PRN PRN Reason: Opioid Reversal Pantoprazole Sodium (Protonix) 40 mg IV DAILY [facility] Last Admin: 01/12/19 09:13 Dose: 40 mg Documented by: Simethicone (Mylicon Drops) 40 mg PO Q6HR PRN PRN Reason: Bloating Last Admin: 01/11/19 22:09 Dose: 40 mg Documented by: Physical examination: VITAL SIGNS: 98.2, 110, 12, 108/61, 95% room air GENERAL: Laying in bed comfortable EYES: Pupils equal. Conjunctiva normal. HEENT: External appearance of nose and ears normal, oral cavity grossly normal. NECK: JVD not raised; masses not palpable. HEART: First and second heart sounds are normal; no edema. LUNGS: Respiratory rate normal; clear to auscultation. ABDOMEN: Soft, minimal tenderness, no guarding or rigidity, liver spleen not palpable, no masses palpable. PSYCH: Alert and oriented x3; mood and affect normal. INVESTIGATIONS, reviewed in the clinical context: White count 12.8 hemoglobin 12.5 potassium 4.2 crit 0.62 Accu-Cheks noted Assessment: -Sleeve gastrectomy -Morbid obesity BMI 48.8 -Mild intermittent asthma -Diabetes mellitus type 2 on oral hypoglycemic, uncontrolled with hyper glycemia -GERD -Essential hypertension -Sinus tachycardia likely from relative dehydration, from decreased oral intake perioperatively Plan: Give patient's lactated Ringer's overnight, and see how he does with that. Acc u-Cheks to follow. Thank you Dr. Nieves
[2019-01-13] MEDS: LACTATED RINGERS 1,000 ML IV SCH ×4 (00:18→23:34)
[2019-01-13] MEDS: ENOXAPARIN 40 MG/0.4 ML SYRINGE SQ SCH ×2 (02:59→15:33)
[2019-01-13 07:13] LABS: Glucose,Whole Blood 169 mg/dL (75-99)
[2019-01-13] MEDS: ALBUTEROL NEBULIZED 2.5 MG/3 ML INHALATION SCH ×4 (07:38→20:31)
[2019-01-13] MEDS: HYDROcodone/APAP 5-325MG 1 EACH TAB PO PRN (08:02)
[2019-01-13] MEDS: PANTOPRAZOLE 40 MG/10 ML VIAL IV SCH (08:02)
[2019-01-13] MEDS: INSULIN ASPART (NovoLOG) 100 UNIT/ML VIAL SQ SCH ×4 (08:02→20:28)
[2019-01-13] MEDS: LISINOPRIL 10 MG TAB PO SCH (08:02)
[2019-01-13 09:34] LABS: Basophils % (A) 0 %; Eosinophils # (A) 0.1 k/uL (0-0.7); Eosinophils % (A) 1 %; HCT 44.2 % (39.0-53.0); HGB 15.3 gm/dL (13.0-17.5); Lymphocytes # (A) 1.8 k/uL (1.0-4.8); Lymphocytes % (A) 20 %; MCH 29.9 pg (25.0-35.0); MCHC 34.7 g/dL (31.0-37.0); Mean Platelet Volume 5.6; Monocytes # (A) 0.6 k/uL (0-1.0); Monocytes % (A) 7 %; Neutrophils # (A) 6.7 k/uL (1.3-7.7); Neutrophils % (A) 71 %; Platelet Count 262 k/uL (150-450); RBC 5.13 m/uL (4.30-5.90); WBC 9.4 k/uL (3.8-10.6)
[2019-01-13 09:39] LABS: ALT 45 U/L (21-72); AST 39 U/L (17-59); African American GFR (CKD) >90 (>60 ml/min/1.73 sqM); Albumin 3.8 g/dL (3.5-5.0); Alkaline Phosphatase 53 U/L (38-126); Anion Gap 9 mmol/L; Blood Urea Nitrogen 14 mg/dL (9-20); Calcium 8.1 mg/dL (8.4-10.2); Carbon Dioxide 27 mmol/L (22-30); Chloride 100 mmol/L (98-107); Glucose 155 mg/dL (74-99); Potassium 4.1 mmol/L (3.5-5.1); Sodium 136 mmol/L (137-145); Total Bilirubin 1.8 mg/dL (0.2-1.3); Total Protein 6.5 g/dL (6.3-8.2)
[2019-01-13 12:07] LABS: Glucose,Whole Blood 139 mg/dL (75-99)
--- NOTE | 2019-01-13 12:54 | P.PN ---
<SagastumeNereyda Samantha - Last Filed: 01/13/19 12:46> Subjective Progress Note Date: 01/13/19 CHIEF COMPLAINT: Morbid obesity HISTORY OF PRESENT ILLNESS: 43-year-old male who underwent laparoscopic sleeve gastrectomy. Postop day #2. Patient tolerating clear liquid diet. Consumed brot h and jello this morning. Denies nausea or vomiting. Pain is controlled on oral medications. Passing flatus. No BM. Has been up ambulating. On room air with oxygen saturations greater than 92%. WBC 9.4. Hemoglobin 15.3. Tachycardia improving. PHYSICAL EXAM: VITAL SIGNS: Reviewed. GENERAL: Well-developed in no acute distress. HEENT: No sclera icterus. Extraocular movements grossly intact. Moist buccal mucosa. Head is atraumatic, normocephalic. ABDOMEN: Soft. Nondistended. Appropriate surgical tenderness. Laparoscopic sites clean dry and intact without drainage. NEUROLOGIC: Alert and oriented. Cranial nerves II through XII grossly intact. ASSESSMENT: 1. Morbid obesity, status post laparoscopic sleeve gastrectomy PLAN: 1. Continue bariatric clear liquid diet 2. Pain control. 3. Encouraged use of incentive spirometer 10 times an hour 4. Encouraged patient to increase ambulate patient as tolerated 5. Patient states he is unsure if he is ready to be discharged today. Dr Nieves to re-evaluate patient this afternoon. Possible DC today versus tomorrow. Nurse practitioner note has been reviewed by physician. Signing provider agrees with the documented findings, assessment, and plan of care. Objective - Vital Signs Vital signs: Vital Signs Temp 98.5 F 01/13/19 11:23 Pulse 98 01/13/19 11:33 Resp 18 01/13/19 12:23 BP 125/84 01/13/19 11:23 Pulse Ox 92 L 01/13/19 11:23 Intake & Output 01/12/19 01/13/19 01/13/19 18:59 06:59 18:59 Intake Total 1611.2 500 Output Total 500 Balance -500 1611.2 500 Weight 156.489 kg Intake: Intake, IV Titration 1511.2 Amount Lactated Ringers 1,000 ml 500 @ 125 mls/hr IV .Q8H [facility] Rx#:[id number] Mvi, Adult No.4 with Vit 1011.2 K 10 ml Thiamine 100 mg Folic Acid 1 mg In 0.9% NaCl with KCl 20 Meq/l 1, 000 ml @ 100 mls/hr IV . BY DURATION [facility] Rx#: [id number] Oral 100 500 Output: Urine 500 Other: Voiding Method Toilet Toilet # Voids 1 - Labs CBC & Chem 7: 01/13/19 08:31 01/13/19 08:31 Labs: Abnormal Lab Results - Last 24 Hours (Table) 01/12/19 01/12/19 01/12/19 Range/Units 06:48 17:05 20:16 Sodium (137-145) mmol/L Creatinine (0.66-1.25) mg/dL Glucose (74-99) mg/dL POC Glucose (mg/dL) 179 H 172 H (75-99) mg/dL Hemoglobin A1c 9.3 H (4.0-6.0) % Calcium (8.4-10.2) mg/dL Total Bilirubin (0.2-1.3) mg/dL 01/13/19 01/13/19 01/13/19 Range/Units 07:11 08:31 11:59 Sodium 136 L (137-145) mmol/L Creatinine 0.56 L (0.66-1.25) mg/dL Glucose 155 H (74-99) mg/dL POC Glucose (mg/dL) 169 H 139 H (75-99) mg/dL Hemoglobin A1c (4.0-6.0) % Calcium 8.1 L (8.4-10.2) mg/dL Total Bilirubin 1.8 H (0.2-1.3) mg/dL <Cedrick Nieves - Last Filed: 01/13/19 21:35> Subjective Doing well. Tachycardia improved. Denies pain. Monitor oral intake. Probable discharge tomorrow morning. Objective - Vital Signs Vital signs: Vital Signs Temp 98.7 F 01/13/19 18:49 Pulse 97 01/13/19 18:49 Resp 18 01/13/19 18:49 BP 114/75 01/13/19 18:49 Pulse Ox 94 L 01/13/19 18:49 Intake & Output 01/13/19 01/13/19 01/14/19 06:59 18:59 06:59 Intake Total 1611.2 540 Balance 1611.2 540 Weight 156.489 kg Intake: Intake, IV Titration 1511.2 Amount Lactated Ringers 1,000 ml 500 @ 125 mls/hr IV .Q8H [facility] Rx#:[id number] Mvi, Adult No.4 with Vit 1011.2 K 10 ml Thiamine 100 mg Folic Acid 1 mg In 0.9% NaCl with KCl 20 Meq/l 1, 000 ml @ 100 mls/hr IV . BY DURATION [facility] Rx#: [id number] Oral 100 540 Other: Voiding Method Toilet Toilet # Voids 1 - Labs CBC & Chem 7: 01/13/19 08:31 01/13/19 08:31 Labs: Abnormal Lab Results - Last 24 Hours (Table) 01/13/19 01/13/19 01/13/19 Range/Units 07:11 08:31 11:59 Sodium 136 L (137-145) mmol/L Creatinine 0.56 L (0.66-1.25) mg/dL Glucose 155 H (74-99) mg/dL POC Glucose (mg/dL) 169 H 139 H (75-99) mg/dL Calcium 8.1 L (8.4-10.2) mg/dL Total Bilirubin 1.8 H (0.2-1.3) mg/dL 01/13/19 01/13/19 Range/Units 16:54 20:15 Sodium (137-145) mmol/L Creatinine (0.66-1.25) mg/dL Glucose (74-99) mg/dL POC Glucose (mg/dL) 139 H 127 H (75-99) mg/dL Calcium (8.4-10.2) mg/dL Total Bilirubin (0.2-1.3) mg/dL Assessment and Plan (1) Morbid obesity with BMI of 45.0-49.9, adult Current Visit: No Status: Acute Code(s): E66.01 - MORBID (SEVERE) OBESITY DUE TO EXCESS CALORIES; Z68.42 - BODY MASS INDEX (BMI) 45.0-49.9, ADULT SNOMED Code(s): 217183798
[2019-01-13 16:57] LABS: Glucose,Whole Blood 139 mg/dL (75-99)
[2019-01-13 20:26] LABS: Glucose,Whole Blood 127 mg/dL (75-99)
[2019-01-13] MEDS: ATORVASTATIN 10 MG TAB PO SCH (21:14)
--- NOTE | 2019-01-13 22:17 | P.PN ---
Progress Note - Text Progress Note Date: 01/13/19 Interval history: This is a pleasant 43-year-old patient of Dr. Braden. Chronic stable medical conditions include mild asthma, diabetes, GERD, essential hypertension. Patient underwent sleeve gastrectomy. had sinus tachycardia. [place] to be from dehydration. Given IV fluids. Heart rate came down. Today-doing better. Given IV fluids overnight. Heart rate discomfort on. Up in the hallway. tolerating liquids. No fever or chills. Review of systems: Was done for constitutional, cardiovascular, GI, pulmonary. relevant finding as above Active Medications Hydrocodone Bitart/Acetaminophen ([place] 5-325) 1 each PO Q4HR PRN PRN Reason: SEVERE Pain Last Admin: 01/13/19 08:02 Dose: 1 each Documented by: Albuterol Sulfate (Ventolin Nebulized) 2.5 mg INHALATION RT-QID [facility] Last Admin: 01/13/19 20:31 Dose: Not Given Documented by: Atorvastatin Calcium (Lipitor) 10 mg PO HS [facility] Last Admin: 01/13/19 21:14 Dose: 10 mg Documented by: Diphenhydramine HCl (Benadryl) 25 mg IVP Q6HR PRN PRN Reason: Itching Enoxaparin Sodium (Lovenox) 40 mg SQ Q12H [facility] Last Admin: 01/13/19 15:33 Dose: 40 mg Documented by: Hydromorphone HCl (Dilaudid) 1 mg IVP Q3HR PRN PRN Reason: SEVERE Pain Last Admin: 01/12/19 03:03 Dose: 1 mg Documented by: Hyoscyamine (Levsin Drops) 0.125 mg PO Q6HR PRN PRN Reason: Esophageal Spasm Last Admin: 01/11/19 22:08 Dose: 0.125 mg Documented by: Parenteral Vitamin Supplement 10 ml/ Thiamine HCl 100 mg/Folic Acid 1 mg/ Potassium Chloride/Sodium Chloride 1,011.2 mls @ 100 mls/hr IV .BY DURATION [facility] Last Admin: 01/13/19 04:33 Dose: 100 mls/hr Documented by: Potassium Chloride/Sodium Chloride (Ns-Kcl 20 Meq/L Iv Solution) 1,000 mls @ 100 mls/hr IV .BY DURATION [facility] Last Admin: 01/13/19 15:32 Dose: Not Given Documented by: Lactated Ringer's (Lactated Ringers) 1,000 mls @ 125 mls/hr IV .Q8H [facility] Last Admin: 01/13/19 15:59 Dose: Not Given Documented by: Insulin Aspart (Novolog) 0 unit SQ ACHS [facility]; Protocol Last Admin: 01/13/19 20:28 Dose: Not Given Documented by: Ketorolac Tromethamine (Toradol) 15 mg IVP Q6HR PRN PRN Reason: MODERATE Pain Stop: 01/16/19 12:14 Lidocaine HCl (.Xylocaine 1% Inj (10mg/Ml) For Iv Start) 0.1 ml INTRADERMA PER PROTOCOL PRN PRN Reason: IV Start Last Admin: 01/11/19 11:37 Dose: 0.1 ml Documented by: Lisinopril (Zestril) 10 mg PO DAILY [facility] Last Admin: 01/13/19 08:02 Dose: 10 mg Documented by: Naloxone HCl (Narcan) 0.2 mg IV Q2M PRN PRN Reason: Opioid Reversal Pantoprazole Sodium (Protonix) 40 mg IV DAILY [facility] Last Admin: 01/13/19 08:02 Dose: 40 mg Documented by: Simethicone (Mylicon Drops) 40 mg PO Q6HR PRN PRN Reason: Bloating Last Admin: 01/11/19 22:09 Dose: 40 mg Documented by: Physical examination: VITAL SIGNS: 98.5, 94, 18, 04/17/1983, 92% room air GENERAL: Laying in bed comfortable EYES: Pupils equal. Conjunctiva normal. HEENT: External appearance of nose and ears normal, oral cavity grossly normal. NECK: JVD not raised; masses not palpable. HEART: First and second heart sounds are normal; no edema. LUNGS: Respiratory rate normal; clear to auscultation. ABDOMEN: Soft, minimal tenderness, no guarding or rigidity, liver spleen not palpable, no masses palpable. PSYCH: Alert and oriented x3; mood and affect normal. INVESTIGATIONS, reviewed in the clinical context: white count 9.4 hemoglobin 15.3 creatinine 0.56 Accu-Cheks noted Accu-Cheks noted Assessment: -Sleeve gastrectomy -Morbid obesity BMI 48.8 -Mild intermittent asthma -Diabetes mellitus type 2 on oral hypoglycemic, uncontrolled with hyper glycemia -GERD -Essential hypertension -Sinus tachycardia likely from relative dehydration, from decreased oral intake perioperatively Plan: patient responded well to IV fluids. Otherwise stable. if discharged, should follow his family doctor. Thank you Dr. Nieves
[2019-01-14] MEDS: ENOXAPARIN 40 MG/0.4 ML SYRINGE SQ SCH ×2 (01:29→17:07)
[2019-01-14 01:53] VITALS: TEMP 98.8
[2019-01-14 03:06] VITALS: PULSE 91
[2019-01-14 07:04] LABS: Glucose,Whole Blood 147 mg/dL (75-99)
[2019-01-14] MEDS: ALBUTEROL NEBULIZED 2.5 MG/3 ML INHALATION SCH ×3 (07:12→15:43)
[2019-01-14 08:27] VITALS: BP 142/79; RESP 16
[2019-01-14] MEDS: LACTATED RINGERS 1,000 ML IV SCH (08:43)
[2019-01-14] MEDS: INSULIN ASPART (NovoLOG) 100 UNIT/ML VIAL SQ SCH ×2 (08:44→13:06)
[2019-01-14] MEDS: LISINOPRIL 10 MG TAB PO SCH (08:44)
[2019-01-14] MEDS: PANTOPRAZOLE 40 MG/10 ML VIAL IV SCH (08:44)
[2019-01-14 11:48] LABS: Glucose,Whole Blood 139 mg/dL (75-99)
--- NOTE | 2019-01-14 13:29 | P.DS ---
Providers Date of admission: 01/11/19 11:08 Expected date of discharge: 01/14/19 Attending physician: Cedrick Nieves Consults: 01/11/19 16:02 Consult Physician Routine Consulting Provider: Jose E Demarco Consult Reason/Comments: Medical management Do you want consulting provider notified?: Yes Primary care physician: [facility] Course: 43-year-old male who underwent laparoscopic sleeve gastrectomy. Patient is doing well postoperatively without any immediate complications. He is tolerating clear liquid diet. Vital signs are stable. He is controlled on oral medications. He is stable for discharge home today. Please see EMR for further hospital course details. Discharge Diagnosis: 1. Morbid obesity, status post laparoscopic sleeve gastrectomy Nurse practitioner note has been reviewed by physician. Signing provider agrees with the documented findings, assessment, and plan of care. Patient Condition at Discharge: Stable Plan - Discharge Summary Discharge Rx Participant: Yes New Discharge Prescriptions: New Bisacodyl [Dulcolax] 5 mg PO DAILY PRN #10 tablet.dr PRN Reason: Constipation Simethicone 40 mg/0.6 ml Drops [Mylicon Drops] 40 mg PO PCHS PRN #30 ml PRN Reason: gas Hydrocodone/Acetaminophen [[place] 5-325] 1 tab PO Q4HR PRN 3 Days #18 tab PRN Reason: Pain Ondansetron Odt [Zofran Odt] 4 mg PO Q8HR PRN #9 tab PRN Reason: Nausea Continue Omeprazole [PriLOSEC] 20 mg PO AC-BRKFST #90 cap No Action Albuterol Inhaler [Ventolin Hfa Inhaler] 2 puff INHALATION Q4H PRN #1 inhaler PRN Reason: Wheezing metFORMIN HCL [Glucophage Xr] 750 mg PO BID Simvastatin [Zocor] 10 mg PO HS Lisinopril [Zestril] 10 mg PO DAILY Discharge Medication List Albuterol Inhaler [Ventolin Hfa Inhaler] 2 puff INHALATION Q4H PRN #1 inhaler 11/14/14 [Rx] metFORMIN HCL [Glucophage Xr] 750 mg PO BID 03/31/18 [History] Simvastatin [Zocor] 10 mg PO HS 11/30/18 [History] Lisinopril [Zestril] 10 mg PO DAILY 12/09/18 [History] Omeprazole [PriLOSEC] 20 mg PO AC-BRKFST #90 cap 12/11/18 [Rx] Bisacodyl [Dulcolax] 5 mg PO DAILY PRN #10 tablet. 01/13/19 [Rx] Hydrocodone/Acetaminophen [[place] 5-325] 1 tab PO Q4HR PRN 3 Days #18 tab 01/13/19 [Rx] Ondansetron Odt [Zofran Odt] 4 mg PO Q8HR PRN #9 tab 01/13/19 [Rx] Simethicone 40 mg/0.6 ml Drops [Mylicon Drops] 40 mg PO PCHS PRN #30 ml 01/13/19 [Rx] Follow up Appointment(s)/Referral(s): Shlomo Braden MD [Primary Care Provider] - 01/29/19 9:40 am () [facility] [place], [place] [NON-STAFF] - 01/18/19 10:00 am Activity/Diet/Wound Care/Special Instructions: Diabetic supplies ordered through [facility] [employer] [facility]: #[phone]. [employer] will send an Assignment of Benefits form that needs to be signed and returned in order for them to continue sending diabetic supplies. No driving while taking [place] No lifting over 10 pounds You may shower. No soaking or tub baths Very light activity until you are reevaluated at your follow up appointment with your surgeon
--- NOTE | 2019-01-14 21:03 | P.PN ---
Progress Note - Text Progress Note Date: 01/14/19 Interval history: This is a pleasant 43-year-old patient of Dr. Braden. Chronic stable medical conditions include mild asthma, diabetes, GERD, essential hypertension. Patient underwent sleeve gastrectomy. had sinus tachycardia. [place] to be from dehydration. Given IV fluids. Heart rate came down. Today-condition doing well. Up and about. Tolerating Liquid diet. No new issues. Comfortable. Review of systems: Was done for constitutional, cardiovascular, GI, pulmonary. relevant finding as above Current medications reviewed in today's electronic records Physical examination: VITAL SIGNS: 98.8, 91, 16, 142/79, 92% room air GENERAL: Sitting up comfortable EYES: Pupils equal. Conjunctiva normal. HEENT: External appearance of nose and ears normal, oral cavity grossly normal. NECK: JVD not raised; masses not palpable. HEART: First and second heart sounds are normal; no edema. LUNGS: Respiratory rate normal; clear to auscultation. ABDOMEN: Soft, minimal tenderness, no guarding or rigidity, liver spleen not palpable, no masses palpable. PSYCH: Alert and oriented x3; mood and affect normal. INVESTIGATIONS, reviewed in the clinical context: Accu-Cheks noted white count 9.4 hemoglobin 15.3 creatinine 0.56 Assessment: -Sleeve gastrectomy -Morbid obesity BMI 48.8 -Mild intermittent asthma -Diabetes mellitus type 2 on oral hypoglycemic, uncontrolled with hyper glycemia -GERD -Essential hypertension -Sinus tachycardia likely from relative dehydration, from decreased oral intake perioperatively Plan: Doing well. Stable. Patient to keep an eye on his Accu-Cheks. Follow with his family doctor. Thank you Dr. Nieves
== END 2019-01-14 17:02 | disposition home or self-care (01) | DRG 621 ==
LOC: OBSVTOIN 11:08 → 2ORMAIN 11:08 → 4SSUR 16:02
PROVIDERS: ADMIT Surgery; ATTEND Surgery
PROC: 0DB64Z3 Excision of Stomach, Percutaneous Endoscopic Approach, Vertical (ICD-10-PCS; principal; 2019-01-11 13:00)
DX: E66.01 Morbid (severe) obesity due to excess calories (principal); E78.00 Pure hypercholesterolemia, unspecified; E86.0 Dehydration; I10 Essential (primary) hypertension; J45.20 Mild intermittent asthma, uncomplicated; K21.9 Gastro-esophageal reflux disease without esophagitis; M19.90 Unspecified osteoarthritis, unspecified site; Z68.42 Body mass index [BMI] 45.0-49.9, adult; Z79.84 Long term (current) use of oral hypoglycemic drugs; Z79.899 Other long term (current) drug therapy; Z82.49 Family history of ischemic heart disease and other diseases of the circulatory system; Z83.3 Family history of diabetes mellitus; R00.0 Tachycardia, unspecified; E11.65 Type 2 diabetes mellitus with hyperglycemia
CPT/HCPCS: 74240; 80051; 80053; 82310; 82565; 83036; 83735; 84100; 84520; 85025; 88307; 93005; 94640; 94760; 94762

== ENCOUNTER → 2019-01-18 | Outpatient (CLI) | payer BC ==
[2019-01-18 13:16] VITALS: BP 126/84; PULSE 86; TEMP 98.2; BMI 47.2
--- NOTE | 2019-01-18 15:09 | P.BASOAP ---
Subjective Progress Note Date: 01/18/19 Principal diagnosis: Morbid obesity Patient returns for reevaluation post sleeve gastrectomy. Patient underwent sleeve gastrectomy 1 week ago. Doing well at this time. Denies pain. Tolerating diet. No dysphagia. Says he has taken in 50-60 ounces of liquids and over 60 g of protein. Objective - Vital Signs Vital signs: Vital Signs Temp 98.2 F 01/18/19 13:14 Pulse 86 01/18/19 13:14 Resp BP 126/84 01/18/19 13:14 Pulse Ox Intake & Output 01/17/19 01/18/19 01/18/19 18:59 06:59 18:59 Weight 151.5 kg - Exam Abdomen: Soft, nondistended, incisions clean and dry Assessment/Plan (1) Morbid obesity with BMI of 45.0-49.9, adult Narrative/Plan: Patient doing well postoperatively. Continue bariatric clears. Meet with the dietitian today. Avoid heavy lifting. Follow-up 2-3 weeks. Plan: Date: 01/18/19 Initial Weight: 157.034 kg Initial BMI: 48.9 Current Weight: 151.5 kg Current BMI: 47.2 Type of Surgery: Total Volume in Band: Previous Volume: Volume Removed: Volume Added: Band Size:
== END | disposition home or self-care (01) ==
LOC: BARWHC3 12:50
PROVIDERS: ATTEND Surgery
DX: Z48.815 Encounter for surgical aftercare following surgery on the digestive system (principal); E66.01 Morbid (severe) obesity due to excess calories; Z68.42 Body mass index [BMI] 45.0-49.9, adult
CPT/HCPCS: 97804; 99211

== ENCOUNTER → 2019-02-09 | Outpatient (CLI) | payer BC ==
[2019-02-09 16:09] VITALS: BP 137/81; PULSE 105; RESP 16; TEMP 97.9; BMI 45.8
--- NOTE | 2019-02-09 16:49 | P.BASOAP ---
Subjective Progress Note Date: 02/09/19 Principal diagnosis: Morbid obesity Patient returns today for postop visit. Doing well since last visit. 10 pound weight loss since last visit. Denies reflux. Had regurgitation to scrabble legs once. Taking his daily vitamins. Still not sure exactly how much protein she is getting an daily. Remains on antiacids. He is approximately 1 month postop. Objective - Vital Signs Vital signs: Vital Signs Temp 97.9 F 02/09/19 15:59 Pulse 105 H 02/09/19 15:59 Resp 16 02/09/19 15:59 BP 137/81 02/09/19 15:59 Pulse Ox Intake & Output 02/08/19 02/09/19 02/09/19 18:59 06:59 18:59 Weight 146.964 kg - Exam Abdomen: Soft, nontender, nondistended, incisions clean and dry Assessment/Plan (1) Morbid obesity with BMI of 45.0-49.9, adult Narrative/Plan: Patient overall doing fairly well. Continue dietary and exercise regimen. We'll plan returning to work next week. Follow up one month. We'll check one month labs at this time. Plan: Date: 02/09/19 Initial Weight: 157.034 kg Initial BMI: 48.9 Current Weight: 146.964 kg Current BMI: 45.8 Type of Surgery: Total Volume in Band: Previous Volume: Volume Removed: Volume Added: Band Size:
== END | disposition home or self-care (01) ==
LOC: BARWHC3 15:50
PROVIDERS: ATTEND Surgery
DX: E66.01 Morbid (severe) obesity due to excess calories (principal); Z68.42 Body mass index [BMI] 45.0-49.9, adult
CPT/HCPCS: 97803; 99211

== ENCOUNTER → 2019-03-31 | Outpatient (CLI) | payer BC ==
[2019-03-31 08:17] LABS: HCT 49.9 % (39.0-53.0); HGB 16.9 gm/dL (13.0-17.5); MCH 29.4 pg (25.0-35.0); MCHC 33.9 g/dL (31.0-37.0); MCV 86.7 fL (80.0-100.0); Mean Platelet Volume 6.7; Platelet Count 285 k/uL (150-450); RBC 5.76 m/uL (4.30-5.90); RDW 13.3 % (11.5-15.5); WBC 6.3 k/uL (3.8-10.6)
[2019-03-31 16:11] LABS: Albumin 4.3 g/dL (3.80-4.90); Albumin/Globulin Ratio 2.69 (1.60-3.17); Anion Gap 6.8 mmol/L (4.00-12.00); BUN/Creat Ratio 21.43 Ratio (12.00-20.00); Calcium 8.8 mg/dL (8.7-10.3); Carbon Dioxide 31.2 mmol/L (21.6-31.8); Chol/HDL Ratio 4.59; Globulin 1.6 g/dL (1.6-3.3); LDL Cholesterol,Calculated 112.8 mg/dL (0.0-131.0); Non-African American GFR(CKD) 115.6 (60.0-200.0); Total Bilirubin 1.5 mg/dL (0.2-1.2); Total Protein 5.9 g/dL (6.2-8.2); VLDL Calculation 34.2 mg/dL (5.00-40.00)
[2019-03-31 16:20] LABS: Folate, Serum 18.8 ng/mL
[2019-03-31 17:34] LABS: Hemoglobin A1C 6.6 % (4.0-6.0)
== END | disposition home or self-care (01) ==
LOC: LABWHC1 06:54
PROVIDERS: ATTEND Surgery
DX: E11.65 Type 2 diabetes mellitus with hyperglycemia (principal); K90.89 Other intestinal malabsorption; E55.9 Vitamin D deficiency, unspecified; E66.01 Morbid (severe) obesity due to excess calories
CPT/HCPCS: 36415; 80053; 80061; 82306; 82607; 82746; 83036; 83540; 84425; 85027

== ENCOUNTER → 2019-04-20 | Outpatient (CLI) | payer BC ==
[2019-04-20 15:29] VITALS: BP 119/72; PULSE 98; RESP 16; TEMP 97.9; BMI 42.3
--- NOTE | 2019-04-20 21:13 | P.BASOAP ---
Subjective Progress Note Date: 04/20/19 Principal diagnosis: Morbid obesity Patient returns for Evaluation. Doing well since last visit. Denies nausea vomiting or reflux. Better energy lately. Recent labs noted. Vitamin D 18. States he is chronical low. Objective - Vital Signs Vital signs: Vital Signs Temp 97.9 F 04/20/19 15:26 Pulse 98 04/20/19 15:26 Resp 16 04/20/19 15:26 BP 119/72 04/20/19 15:26 Pulse Ox Intake & Output 04/20/19 04/20/19 04/21/19 06:59 18:59 06:59 Weight 135.624 kg - Exam Abdomen: Soft, nondistended, minimal tenderness. Incisions clean and dry Assessment/Plan (1) Morbid obesity with BMI of 45.0-49.9, adult Narrative/Plan: Patient doing relatively well postop. Continue vitamin D supplementation. Recheck 2-3 months. Plan: Date: 04/20/19 Initial Weight: 157.034 kg Initial BMI: 48.9 Current Weight: 135.624 kg Current BMI: 42.3 Type of Surgery: Vertical Sleeve Gastrectomy Total Volume in Band: Previous Volume: Volume Removed: Volume Added: Band Size:
== END ==
LOC: BARWHC3 15:08
PROVIDERS: ATTEND Surgery
DX: E66.01 Morbid (severe) obesity due to excess calories (principal); Z68.42 Body mass index [BMI] 45.0-49.9, adult; Z98.84 Bariatric surgery status
CPT/HCPCS: 97803; 99211

== ENCOUNTER → 2019-06-01 | Outpatient (CLI) | payer BC ==
[2019-06-01 15:34] VITALS: BP 100/68; PULSE 86; RESP 16; TEMP 97.9; BMI 40.7
--- NOTE | 2019-06-01 15:49 | P.BASOAP ---
Subjective Progress Note Date: 06/01/19 Principal diagnosis: Morbid obesity Patient returns for 1 month recheck. States his blood pressure was low when he saw his primary care doctor yesterday. He was told to stop his blood pressure medications. Today his blood pressure is 100/68. He is asymptomatic. He has started taking vitamin D 50,000 units weekly. No recent lab work. Still eating small volumes. No reflux. He stopped his antiacids. Objective - Vital Signs Vital signs: Vital Signs Temp 97.9 F 06/01/19 15:31 Pulse 86 06/01/19 15:31 Resp 16 06/01/19 15:31 BP 100/68 06/01/19 15:31 Pulse Ox Intake & Output 05/31/19 06/01/19 06/01/19 18:59 06:59 18:59 Weight 130.635 kg - Exam Abdomen: Soft, nontender, nondistended Assessment/Plan (1) Morbid obesity with BMI of 45.0-49.9, adult Narrative/Plan: Patient doing well at this time. Continue vitamin D supplementation. Continue monitoring symptoms off of omeprazole. Plan recheck in late July. We'll check 6 month labs at that time. Patient states he has lab work that his primary care physician also wants in August. Monitor blood pressure. Continue dietary and exercise regimen. Plan: Date: 06/01/19 Initial Weight: 157.034 kg Initial BMI: 48.9 Current Weight: 130.635 kg Current BMI: 40.7 Type of Surgery: Vertical Sleeve Gastrectomy Total Volume in Band: Previous Volume: Volume Removed: Volume Added: Band Size:
== END | disposition home or self-care (01) ==
LOC: BARWHC3 15:22
PROVIDERS: ATTEND Surgery
DX: E66.01 Morbid (severe) obesity due to excess calories (principal); Z68.42 Body mass index [BMI] 45.0-49.9, adult
CPT/HCPCS: 99211

== ENCOUNTER → 2020-08-28 | Outpatient (CLI) | payer BC ==
[2020-08-28 10:54] LABS: HCT 46.3 % (39.6-50.0); HGB 15.8 g/dL (13.0-17.0); MCH 29.9 pg (27.0-32.0); MCHC 34.1 g/dL (32.0-37.0); MCV 87.7 fL (80.0-97.0); Mean Platelet Volume 9.2 fL (9.5-12.2); Platelet Count 276 X 10*3/uL (140-440); RBC 5.28 X 10*6/uL (4.40-5.60); RDW 12.6 % (11.5-14.5); WBC 5.63 X 10*3/uL (4.50-10.00)
[2020-08-28 12:54] LABS: Albumin 4.1 g/dL (3.80-4.90); Albumin/Globulin Ratio 2.05 (1.60-3.17); Anion Gap 7.3 mmol/L (4.00-12.00); BUN/Creat Ratio 21.43 Ratio (12.00-20.00); Calcium 8.6 mg/dL (8.7-10.3); Carbon Dioxide 30.7 mmol/L (21.6-31.8); Chol/HDL Ratio 3.04; LDL Cholesterol,Calculated 91.6 mg/dL (0.0-131.0); Non-African American GFR(CKD) 114.8 (60.0-200.0); Potassium 4.1 mmol/L (3.5-5.5); Total Bilirubin 1.8 mg/dL (0.3-1.2); Total Protein 6.1 g/dL (6.2-8.2); VLDL Calculation 18.4 mg/dL (5.00-40.00)
[2020-08-28 12:55] LABS: % Iron Saturation 36.05 (15.00-50.00)
[2020-08-28 13:04] LABS: Ferritin 188.3 ng/mL (22.0-322.0)
== END | disposition home or self-care (01) ==
LOC: LABWHC1 07:13
PROVIDERS: ATTEND Family Medicine
DX: Z20.822 Contact with and (suspected) exposure to COVID-19 (principal); Z98.84 Bariatric surgery status
CPT/HCPCS: 36415; 80053; 80061; 82306; 82607; 82728; 83540; 83550; 83970; 85027; 86769

== ENCOUNTER → 2020-08-29 | Outpatient (CLI) | payer BC ==
--- NOTE | 2020-08-29 16:57 | P.BASOAP ---
Subjective Progress Note Date: 08/29/20 Principal diagnosis: Morbid obesity Patient returns for reevaluation. Last seen 15 months ago. Has lost an additional 50 pounds. Had labs drawn from his primary care physician. Vitamin D is at 27. Still takes vitamin D supplements. No nausea or vomiting. Some belching at times. No heartburn. Does not take anything for heartburn. Weight currently 234. Objective - Vital Signs Vital signs: Vital Signs Temp 97.4 F L 08/29/20 16:51 Pulse 91 08/29/20 16:51 Resp BP 116/78 08/29/20 16:51 Pulse Ox Intake & Output 08/28/20 08/29/20 08/29/20 18:59 06:59 18:59 Weight 106.141 kg - Exam Abdomen: Soft, nontender, nondistended Assessment/Plan (1) Morbid obesity with BMI of 45.0-49.9, adult Narrative/Plan: Patient doing well postoperatively. Good weight loss so far. Patient having some mild irritation of the skin at the pannus. He will observe that for now. Continue vitamin D supplementation. Continue dietary and exercise regimen. Follow-up 1yr Plan: Date: 08/29/20 Initial Weight: 157.034 kg Initial BMI: 48.9 Current Weight: 106.141 kg Current BMI: 33.0 Type of Surgery: Total Volume in Band: Previous Volume: Volume Removed: Volume Added: Band Size:
== END ==
CPT/HCPCS: 99211

== ENCOUNTER → 2021-10-16 | Outpatient (CLI) | payer BC, OTHER ==
[2021-10-16 15:56] VITALS: BP 121/75; PULSE 76; RESP 16; TEMP 98.3; BMI 35.2
--- NOTE | 2021-10-16 16:10 | P.BASOAP ---
Subjective Progress Note Date: 10/16/21 Principal diagnosis: Morbid obesity Patient returns for recheck. And sleeve gastrectomy almost 3 years ago. Last seen in August of last year. Patient still taking supplemental vitamin D. No heartburn or nausea vomiting. No skin issues at this time. Objective - Vital Signs Vital signs: Vital Signs Temp 98.3 F 10/16/21 15:54 Pulse 76 10/16/21 15:54 Resp 16 10/16/21 15:54 BP 121/75 10/16/21 15:54 Pulse Ox FiO2 Intake & Output 10/15/21 10/16/21 10/16/21 18:59 06:59 18:59 Weight 112.945 kg - Exam Abdomen: Soft, nontender, nondistended Assessment/Plan (1) Morbid obesity with BMI of 45.0-49.9, adult Narrative/Plan: Patient doing well at this time. Continue dietary and exercise regimen. Check 3 year labs and will include hemoglobin A1c and lipid panel. Follow-up 1 year. Plan: Date: 10/16/21 Initial Weight: 157.034 kg Initial BMI: 48.9 Current Weight: 112.945 kg Current BMI: 35.2 Type of Surgery: Vertical Sleeve Gastrectomy Total Volume in Band: Previous Volume: Volume Removed: Volume Added: Band Size:
== END ==
LOC: BARWHC3 15:52
PROVIDERS: ATTEND Surgery
DX: E66.01 Morbid (severe) obesity due to excess calories (principal); Z98.84 Bariatric surgery status; Z68.35 Body mass index [BMI] 35.0-35.9, adult
CPT/HCPCS: 99211

== ENCOUNTER → 2022-11-02 | Outpatient (CLI) | payer BC ==
[2022-11-03 07:31] LABS: HGB 17.6 d/dL (13.0-17.0); MCH 30.6 pg (27.0-32.0); MCHC 34.5 d/dL (32.0-37.0); MCV 88.5 FL (80.0-97.0); Mean Platelet Volume 9.5 FL (9.5-12.2); NRBC Per 100 WBC 0 X 10*3/uL (0.00-0.01); Platelet Count 260 X 10*3/uL (140-440); RBC 5.76 X 10*6/uL (4.40-5.60); RDW 12.6 % (11.5-14.5); WBC 5.82 X 10*3/uL (4.50-10.00)
[2022-11-03 08:32] LABS: % Iron Saturation 41.33 (15.00-50.00); ALT 17 U/L (10-49); AST 19 U/L (14-35); Albumin 4.4 d/dL (3.8-4.9); Alkaline Phosphatase 59 U/L (41-126); BUN/Creat Ratio 19.14 Ratio (12.00-20.00); Blood Urea Nitrogen 13.4 mg/dL (9.0-27.0); Calcium 9.1 mg/dL (8.7-10.3); Carbon Dioxide 26.7 mmol/L (21.6-31.8); Chloride 102 mmol/L (96-109); Chol/HDL Ratio 3.01 Ratio; Globulin 2.1 d/dL (1.6-3.3); Glucose 110 mg/dL (70-110); Iron 124 UG/DL (65-175); LDL Cholesterol,Calculated 108.1 mg/dL (0.0-131.0); Potassium 4.3 mmol/L (3.5-5.5); Sodium 140 mmol/L (135-145); Total Bilirubin 1.5 mg/dL (0.3-1.2); Total Iron Binding Capacity 300 UG/DL (228-460); Total Protein 6.5 d/dL (6.2-8.2)
[2022-11-03 10:30] LABS: Hepatitis B Surface Antigen Nonreactive; Hepatitis C IgG Antibody Nonreactive
== END | disposition home or self-care (01) ==
LOC: LABWHC1 10:08
PROVIDERS: ATTEND Family Medicine
DX: Z98.84 Bariatric surgery status (principal)
CPT/HCPCS: 36415; 80053; 80061; 82306; 82607; 82728; 83036; 83540; 83550; 83970; 85027; 86592; 86694; 86803; 87340; 87390; 87491; 87591

== ENCOUNTER → 2022-11-02 | Outpatient (CLI) | payer BC | END | disposition home or self-care (01) | LOC: LABWHC1 10:11 | PROVIDERS: ATTEND Family Medicine | DX: Z53.9 Procedure and treatment not carried out, unspecified reason (principal) ==

== ENCOUNTER → 2023-04-08 | Outpatient (CLI) | payer BC, OTHER ==
[2023-04-08 16:30] VITALS: BP 108/75; PULSE 78; RESP 16; TEMP 98; BMI 36.2
--- NOTE | 2023-04-08 16:42 | P.BASOAP ---
Subjective Progress Note Date: 04/08/23 Principal diagnosis: Morbid obesity Patient returns for recheck. Last seen 1.5 years ago. Apparently had recent labs at his primary care doctor's office. Overall doing fairly well. His probably put on about 10-15 pounds from his lowest. No nausea or vomiting. No GERD. Some belching at times. Objective - Vital Signs Vital signs: Vital Signs Temp 98 F 04/08/23 16:16 Pulse 78 04/08/23 16:16 Resp 16 04/08/23 16:16 BP 108/75 04/08/23 16:16 Pulse Ox FiO2 Intake & Output 04/07/23 04/08/23 04/08/23 18:59 06:59 18:59 Weight 116.12 kg - Exam Abdomen: Soft, nontender, nondistended Assessment/Plan (1) Morbid obesity with BMI of 45.0-49.9, adult Narrative/Plan: 47-year-old male doing well after previously gastrectomy. We'll check recent labs from his primary care physician. Continue dietary and exercise regimen. Follow-up 1 year. Plan: Date: 04/08/23 Initial Weight: 157.034 kg Initial BMI: 48.9 Current Weight: 116.12 kg Current BMI: 36.2 Type of Surgery: Vertical Sleeve Gastrectomy Total Volume in Band: Previous Volume: Volume Removed: Volume Added: Band Size:
== END ==
LOC: BARWHC3 16:02
PROVIDERS: ATTEND Surgery
DX: E66.01 Morbid (severe) obesity due to excess calories (principal); Z98.84 Bariatric surgery status; Z71.3 Dietary counseling and surveillance; Z68.36 Body mass index [BMI] 36.0-36.9, adult
CPT/HCPCS: 99211

== ENCOUNTER → 2024-03-30 | Outpatient (CLI) | payer BC ==
[2024-03-30 16:22] VITALS: BP 116/66; PULSE 90; RESP 16; TEMP 97.2; BMI 38.3
--- NOTE | 2024-03-30 16:44 | P.BASOAP ---
Subjective Progress Note Date: 03/30/24 Principal diagnosis: Morbid obesity Patient returns for annual recheck. Was last seen in March of last year. Has gained weight since then. He has gained 15 pounds. Says there are no changes to his diet. Denies GERD. No PPIs being utilized. Thinks he is exercising a bit less than previous. Maybe some bad choices recently. Objective - Vital Signs Vital signs: Vital Signs Temp 97.2 F L 03/30/24 16:19 Pulse 90 03/30/24 16:19 Resp 16 03/30/24 16:19 BP 116/66 03/30/24 16:19 Pulse Ox FiO2 Intake & Output 03/29/24 03/30/24 03/30/24 18:59 06:59 18:59 Weight 122.924 kg - Exam Abdomen: Soft, nontender, nondistended Assessment/Plan (1) Morbid obesity with BMI of 45.0-49.9, adult Narrative/Plan: 48-year-old male with morbid obesity. Patient thinks he may start increasing his exercise routine which is a good option. Discussed possibly discussing GLP- 1 agonist with his primary care physician. Monitor caloric intake. Check annual lab work. Follow-up 1 year. Plan: Date: 03/30/24 Initial Weight: 157.034 kg Initial BMI: 48.9 Current Weight: 122.924 kg Current BMI: 38.3 Type of Surgery: Vertical Sleeve Gastrectomy Total Volume in Band: Previous Volume: Volume Removed: Volume Added: Band Size:
== END ==
LOC: BARWHC3 16:01
PROVIDERS: ATTEND Surgery
DX: E66.01 Morbid (severe) obesity due to excess calories (principal); Z68.42 Body mass index [BMI] 45.0-49.9, adult
CPT/HCPCS: 99211